=== PATIENT | female | born 1960 | race Caucasian/White ===

== ENCOUNTER 2022-02-10 12:42 | Emergency (ER) | payer BC, OTHER ==
[2022-02-10 14:01] LABS: HIV (1/2) Antibody/Antigen Non-Reactive (NonReactive); HIV 1/2 INDEX 0.09 S/CO (<1.00)
[2022-02-11 00:22] LABS: Hep C IgG Ab Non-Reactive (NonReactive)
[2022-02-11 00:37] LABS: HBSAB Concentration 33.59 mIU/mL; Hep B Surf AB Reactive (NonReactive); Hep C Index 0.08 S/CO (0-0.79)
== END 2022-02-10 12:50 | disposition home or self-care (01) ==
LOC: CSHERS 12:42
DX: Z77.21 Contact with and (suspected) exposure to potentially hazardous body fluids (principal)
CPT/HCPCS: 36415